=== PATIENT | male | born 1945 | race Caucasian/White ===

== ENCOUNTER 2017-12-03 12:31 | Inpatient (IN) | payer MEDICARE, OTHER ==
[2017-12-03 13:14] LABS: % BASOPHILS 0.2 % (0.0-2.0); % EOSINOPHILS 1.5 % (0.0-5.0); % LYMPHOCYTES 10.8 % (20.0-50.0); % MONOCYTES 4.3 % (2.0-10.0); % NEUTROPHILS 83.2 % (40.0-80.0); EOSINOPHILE ABSOLUTE 0.2 Th/cmm (0.1-0.4); HEMATOCRIT 37.6 % (41.0-60); HEMOGLOBIN 12.5 gm/dL (12-16); LYMPHOCYTE ABSOLUTE 1.3 Th/cmm (1.5-3.0); MEAN CELL VOLUME 86.6 fl (80-99); MEAN CORPUSCULAR HEMOGLOBIN 28.7 pg (27.0-31.0); MEAN CORPUSCULAR HGB CONC 33.1 pg (28.0-36.0); MEAN PLATELET VOLUME 7.8 fl; MONOCYTE ABSOLUTE 0.5 Th/cmm (0.3-1.0); NEUTROPHILE ABSOLUTE 10.1 Th/cmm (1.8-8.0); PLATELET COUNT 358 Th/cmm (150-400); RED BLOOD COUNT 4.34 Mil/cmm (3.80-5.80); RED CELL DISTRIBUTION WIDTH 15.6 % (11.5-20.0)
[2017-12-03 13:18] LABS: WHITE BLOOD COUNT 12.1 Th/cmm (4.8-10.8)
--- NOTE | 2017-12-03 13:18 | ED Physician Chart ---
ED Chief Complaint/HPI - Patient Information Date Seen:: 12/03/17 Time Seen:: 12:30 Chief Complaint:: Weakness History of Present Illness:: onset x 3 days of generalized weakness and dizziness; no report of trauma, LOC, ALOC, AMS, H/as, neck pain, C/P, SOB, Abd. Pain, A/N/V/D/C, fever, chills, or back pain Allergies:: Allergies Allergy/AdvReac Type Severity Reaction Status Date / Time No Known Allergies Allergy Verified 12/03/17 12:44 Vitals:: Vital Signs - 8 hr 12/03/17 12:31 Temp 97.8 F HR 81 RR 16 BP 125/71 O2 Sat % 97 Historian:: Patient, EMS Review:: Nurse's Note Reviewed, Old Chart Reviewed, EMS run form Reviewed ED Review of Systems - Review of Systems General/Constitutional: No fever, No chills, No weight loss, Weakness, No diaphoresis, No edema, No loss of appetite Skin: No skin lesions, No rash, No bruising Head: No headache, No light-headedness Eyes: No loss of vision, No pain, No diplopia ENT: No earache, No nasal drainage, No sore throat, No tinnitus Neck: No neck pain, No swelling, No thyromegaly, No stiffness, No mass noted Cardio Vascular: No chest pain, No palpitations, No PND, No orthopnea, No edema Pulmonary: No SOB, No cough, No sputum, No wheezing GI: No nausea, No vomiting, No diarrhea, No pain, No melena, No hematochezia, No constipation, No hematemesis G/U: No dysuria, No frequency, Hematuria, No nacturia Musculoskeletal: No bone or joint pain, No back pain, No muscle pain Endocrine: No polyuria, No polydipsia Psychiatric: No prior psych history, No depression, No anxiety, No suicidal ideation, No homicidal ideation, No auditory hallucination, No visual hallucination Hematopoietic: No bruising, No lymphadenopathy Allergic/Immuno: No urticaria, No angioedema Neurological: No syncope, Focal symptoms, Weakness, No paresthesia, No headache , No seizure, Dizziness, Confusion, Vertigo ED Past Medical History - Past Medical History Obtainable: Yes Past Medical History: HTN, CAD, CVA/TIA, Dyslipidemia, Dementia Family History: Diabetes Melitus, HTN Social History: Non Smoker, No Alcohol, No Drug Use, Single, Care Facility Surgical History: other (Craniotomy) Psychiatricy History: Dementia Medication: Reviewed Family Medical History - Family Member Mother History Unknown: Yes ED Physical Exam - Physical Examination General/Constitutional: Awake, Well-developed, well-nourished, Alert, No distress, GCS 15, Non-toxic appearing, Ambulatory Head: Atraumatic Eyes: Lids, conjuctiva normal, PERRL, EOMI Skin: Nl inspection, No rash, No skin lesions, No ecchymosis, Well hydrated, No lymphadenopathy ENMT: External ears, nose nl, TM canals nl, Nasal exam nl, Lips, teeth, gums nl , Oropharynx nl, Tonsils nl Neck: Nontender, Full ROM w/o pain, No JVD, No nuchal rigidity, No bruit, No mass, No stridor Respiratory: Nl effort/Exclusion, Clear to Auscultation, No Wheeze/Rhonchi/Rales Cardio Vascular: RRR, No murmur, gallop, rubs, NL S1 S2, Carotid/Femoral/Distal pulses equal bilaterally GI: No tenderness/rebounding/guarding, No organomegaly, No hernia, Normal BS's, Nondistended, No mass/bruits, No McBurney tenderness : No CVA tenderness Extremities: No tenderness or effusion, Full ROM, normal strength in all extremities, No edema, Normal digits & nails Neuro/Psych: Alert/oriented, DTR's symmetric, Normal sensory exam, Normal motor strength, Judgement/insight normal, Mood normal, Normal gait, No focal deficits Other Neuro/Psych comments:: + Aphasia; old CVA Misc: Normal back, No paraspinal tenderness ED Labs/Radiology/EKG Results - Lab Results Comments:: WBC: 12.1 - Radiology Results Comments:: CXR: CM; NAD - EKG Interpretations EKG Time:: 13:23 Rate & Rhythm: 74; NSR Comments:: Old IWMI; non-specific st-t changes ED Septic Shock - . Is Septic Shock (SBP<90, OR Lactate>4 mmol\L) present?: No - <6hrs of presentation: Vital Signs: Vital Signs - 8 hr 12/03/17 12:31 Temp 97.8 F HR 81 RR 16 BP 125/71 O2 Sat % 97 ED Reassessment (Disposition) - Reassessment Reassessment Condition:: Improved - Diagnosis Diagnosis:: Weakness; Dizziness; CVA; Leukocytosis; UTI; Hematuria; Sepsis - Aftercare/Follow up Instructions Aftercare/Follow-Up Instructions:: Counseled pt regarding lab results/diagnosis & need follow up, Counseled pt & family regarding lab results/diagnosis & need follow up - Patient Disposition Discharge/Transfer:: Acute Care w/in this hosp Accepting Physician:: Dr. Lopez Time Called:: 1340 Time Responded:: 13:40 Admitted to:: Med/Surg Spoke to:: Dr. Lopez Admitting Medical Physician:: Dr. Lopez Condition at Disposition:: Stable, Improved
[2017-12-03 13:27] LABS: INR 1.1 (0.5-1.4); PROTHROMBIN TIME (TEST) 11.5 SECONDS (9.5-11.5)
--- NOTE | 2017-12-03 13:36 | Diagnostic Imaging Report ---
CHEST X-RAY: AP view INDICATION: pain COMPARISON: None FINDINGS: There is no focal consolidation or pleural effusions The heart is normal in size. Mild tortuous aorta is noted. Degenerative changes of the spine are noted. Degenerative changes of the left shoulder also noted. IMPRESSION: No focal airspace consolidation identified. Mildly tortuous aorta.
[2017-12-03] MEDS ORDERED: cefTRIAXone 1 GM in Sodium Chloride 0.9% 50 ML IV ONE (13:50)
[2017-12-03] MEDS ORDERED: Sodium Chloride 0.9% 1,000 ML IV SCH (15:00)
[2017-12-03 15:08] LABS: URINE BILIRUBIN NEGATIVE (NEGATIVE); URINE BLOOD LARGE (NEGATIVE); URINE GLUCOSE (UA) NEGATIVE (NEGATIVE); URINE KETONE NEGATIVE (NEGATIVE); URINE LEUKOCYTE ESTERASE MODERATE (NEGATIVE); URINE MICROSCOPIC INDICATED? YES; URINE NITRATE POSITIVE (NEGATIVE); URINE PROTEIN NEGATIVE (NEGATIVE); URINE SOURCE MIDSTREAM; URINE UROBILINOGEN 0.2 E.U./dL (0.2 - 1.0)
[2017-12-03 15:25] LABS: URINE CLARITY HAZY (CLEAR); URINE COLOR YELLOW
[2017-12-03 15:29] LABS: URINE BACTERIA FEW /hpf (NONE SEEN); URINE EPITHELIAL CELLS FEW /lpf (FEW); URINE YEAST FEW /hpf (NONE SEEN)
[2017-12-03 16:26] LABS: ANION GAP 14.7 (7.0-16.0); CHLORIDE 103 mEq/L (98-107); POTASSIUM SERUM 3.7 mEq/L (3.5-5.1); SODIUM SERUM 136 mEq/L (136-145)
[2017-12-03 16:27] LABS: BUN - UREA NITROGEN 16 mg/dL (7-25); CALCIUM SERUM 10.1 mg/dL (8.6-10.3); CREATININE - SERUM 0.7 mg/dL (0.7-1.3); GFR AFRICAN-AMERICAN > 60.0 ml/min (>90); GFR NON AFRICAN-AMERICAN > 60.0 ml/min; GLUCOSE 102 mg/dL (70-105)
[2017-12-03 16:35] LABS: ALB/GLOB RATIO 0.7 (1.0-1.8); BILIRUBIN,TOTAL 0.7 mg/dL (0.3-1.0); TOTAL PROTEIN,SERUM 7.1 gm/dL (6.0-8.3)
[2017-12-03 16:36] LABS: ALKALINE PHOSPHATASE 98 U/L (34-104); CREATININE KINASE 62 U/L (30-223); SGOT 24 U/L (13-39); SGPT/ALT 21 U/L (7-52)
[2017-12-03 17:26] VITALS: BP 134/82
[2017-12-04] MEDS ORDERED: Hydrocodone/APAP 5mg/325mg Tab GT PRN (08:37)
--- NOTE | 2017-12-04 08:57 | History and Physical ---
History of Present Illness - HPI Chief Complaint: Hematuria HPI: Patient just was admitted to SNF after hospitalization due to cerebral surgery ( Dural AVF and craniotomy and embolization) He developed fever and leukocytosis. He was transferred to SNF to continue of care. Yesterday Nurse informed me that patient was having Hematuria and was transferred to ER. Vital Signs: Last Vital Signs Temp 98.3 F 12/04/17 04:32 Pulse 69 12/04/17 04:32 Resp 17 12/04/17 04:32 BP 146/92 12/04/17 04:32 Pulse Ox 96 12/04/17 04:32 Past Medical History Cardiovascular: Report: CAD, CHF, HTN Pulmonary: Report: No Pertinent Hx [employer] SERV[employer] MANAGER: Report: Other (S/P CVA, Dural AVF, Craniotomy and embolization.) GI: Report: Other (PEG in place) Psych: Report: No Pertinent Hx Musculoskeletal: Report: Weakness, Other Rheumatologic: Report: No pertinent Hx Infectious Disease: Report: No Pertinent Hx Renal/: Report: No Pertinent Hx Dermatology: Report: No Pertinent Hx - Past Surgical History Past Surgical History: Other (S/P CRANIOTOMY) Family Medical History - Family Member Mother History Unknown: Yes Social History Smoke: No Alcohol: None Drugs: None Lives: Jail Domestic Violence: Negative - Medications Home Medications: Home Medication Medication Instructions Recorded Type Acetaminophen [Tylenol] 160 mg GT Q6H PRN 12/03/17 History Ascorbic Acid [Vitamin C] 500 mg GT DAILY 12/03/17 History Carbidopa/Levodopa [Sinemet 25-100 1 each GT BID 12/03/17 History mg Tablet] Clopidogrel [Plavix] 75 mg GT DAILY 12/03/17 History Docusate Sodium [Colace] 100 mg GT BID 12/03/17 History Hydrocodone/Acetaminophen [Lortab 1 tab GT Q6H PRN 12/03/17 History 5/325 325 mg-5 mg*] Pantoprazole [Protonix] 40 mg GT QAM 12/03/17 History Simvastatin [Zocor*] 20 mg PO HS 12/03/17 History Tamsulosin HCl [Flomax] 0.4 mg GT HS 12/03/17 History Zinc Sulfate 220 mg GT DAILY 12/03/17 History - Allergies Allergies/Adverse Reactions: Allergies Allergy/AdvReac Type Severity Reaction Status Date / Time No Known Allergies Allergy Verified 12/03/17 12:44 Review of Systems - Review of Systems Constitutional: Report: Fever Eyes: Report: No Significant ENT: Report: No Significant Respiratory: Report: No Significant Cardiovascular: Report: No Significant Gastrointestinal: Report: No Significant Genitourinary: Report: Hematuria Musculoskeletal: Report: No Significant Skin: Report: No Significant Neurological: Report: No Significant, Other (Right hemiplegia) Physical Exam - Physical Exam HEENT: Report: Ears Nose Throat within normal limits, Other (Patient has surgical graps in head) Neck: Report: Within normal limits Cardiovascular Systems: Report: Regular, Rate and Rhythm Respiratory: Report: Breath Sounds are within normal limits Abdomen: Report: Non-tender to palpation, PEG site is clean Back: Report: Inspection of back is within normal limits. Extremities: Report: Non-tender to palpation., Other (Right hemiplegia) Skin: Report: Color of skin is within normal limits, Warm, Dry Neuro/Psych: Report: Disoriented to name time or place - Assessment Assessment: Patient is awake, alert, confused in no acute distress. Dx: Sepsis, hematuria, S /P craniotomy, HTN, Dementia. - Plan Plan: Patient in IV NS, Rocephin, continue with SNF meds, Tube feeding, consult with ID requested. Head CT will be requested. Will continue to monitor.
[2017-12-04] MEDS ORDERED: Pantoprazole 40 mg EC Tab PO SCH (09:00)
[2017-12-04 09:22] LABS: % BASOPHILS 0.4 % (0.0-2.0); % EOSINOPHILS 1.8 % (0.0-5.0); % LYMPHOCYTES 13.8 % (20.0-50.0); % MONOCYTES 5.4 % (2.0-10.0); % NEUTROPHILS 78.6 % (40.0-80.0); EOSINOPHILE ABSOLUTE 0.1 Th/cmm (0.1-0.4); HEMATOCRIT 34.4 % (41.0-60); HEMOGLOBIN 11.7 gm/dL (12-16); LYMPHOCYTE ABSOLUTE 1.1 Th/cmm (1.5-3.0); MEAN CORPUSCULAR HEMOGLOBIN 29.6 pg (27.0-31.0); MEAN PLATELET VOLUME 7.8 fl; MONOCYTE ABSOLUTE 0.4 Th/cmm (0.3-1.0); NEUTROPHILE ABSOLUTE 6.7 Th/cmm (1.8-8.0); PLATELET COUNT 334 Th/cmm (150-400); RED BLOOD COUNT 3.96 Mil/cmm (3.80-5.80); WHITE BLOOD COUNT 8.3 Th/cmm (4.8-10.8)
[2017-12-04 09:39] LABS: ALBUMIN 3.2 gm/dL (4.2-5.5); ALKALINE PHOSPHATASE 82 U/L (34-104); ANION GAP 10.5 (7.0-16.0); BILIRUBIN,TOTAL 0.8 mg/dL (0.3-1.0); BUN - UREA NITROGEN 16 mg/dL (7-25); CALCIUM SERUM 9.5 mg/dL (8.6-10.3); CARBON DIOXIDE 25.7 mEq/L (21.0-31.0); CHLORIDE 106 mEq/L (98-107); CREATININE - SERUM 0.8 mg/dL (0.7-1.3); GFR AFRICAN-AMERICAN > 60.0 ml/min (>90); GFR NON AFRICAN-AMERICAN > 60.0 ml/min; GLUCOSE 129 mg/dL (70-105); POTASSIUM SERUM 4.2 mEq/L (3.5-5.1); SGOT 18 U/L (13-39); SGPT/ALT 22 U/L (7-52); SODIUM SERUM 138 mEq/L (136-145); TOTAL PROTEIN,SERUM 6.3 gm/dL (6.0-8.3)
[2017-12-04] MEDS ORDERED: cefTRIAXone 1 GM in Sodium Chloride 0.9% 50 ML IV SCH (10:00)
--- NOTE | 2017-12-04 18:24 | Consultation ---
Consult Note - Consult Note Service Date: 12/04/17 Referring Physician: Todd Lopez Consult Note: cancel
--- NOTE | 2017-12-05 10:02 | Discharge Summary ---
General Discharge Summary - Discharge Summary Date of Admission: 12/03/17 Admitting Diagnosis: Sepsis, UTI, Hematuria, S/P Dural AVF and craneotomy Discharge Date: 12/04/17 Discharge Diagnosis: Sepsis, UTI, Hematuria, HTN, Dementia, S?P Dural AVF and S/ P craneotomy. Laboratory Findings: Laboratory Results - last 24 hr 12/04/17 09:15 Sodium 138 Potassium 4.2 Chloride 106 Carbon Dioxide 25.7 Anion Gap 10.5 BUN 16 Creatinine 0.8 Est GFR ( Amer) > 60.0 Est GFR (Non-Af Amer) > 60.0 BUN/Creatinine Ratio 20.0 Glucose 129 H Calcium 9.5 Total Bilirubin 0.8 AST 18 ALT 22 Alkaline Phosphatase 82 Total Protein 6.3 Albumin 3.2 L Globulin 3.1 Albumin/Globulin Ratio 1.0 Hospital Course: Patient was started in IV NS, IV AB, continue with SNF meds. Per Insurance request patient was transferred to other hospital. Disposition: TRANSFER TO ACUTE HOSP Home Medications: Home Medication Medication Instructions Recorded Type Acetaminophen [Tylenol] 160 mg GT Q6H PRN 12/03/17 History Ascorbic Acid [Vitamin C] 500 mg GT DAILY 12/03/17 History Carbidopa/Levodopa [Sinemet 25-100 1 each GT BID 12/03/17 History mg Tablet] Clopidogrel [Plavix] 75 mg GT DAILY 12/03/17 History Docusate Sodium [Colace] 100 mg GT BID 12/03/17 History Hydrocodone/Acetaminophen [Lortab 1 tab GT Q6H PRN 12/03/17 History 5/325 325 mg-5 mg*] Pantoprazole [Protonix] 40 mg GT QAM 12/03/17 History Simvastatin [Zocor*] 20 mg PO HS 12/03/17 History Tamsulosin HCl [Flomax] 0.4 mg GT HS 12/03/17 History Zinc Sulfate 220 mg GT DAILY 12/03/17 History Activity: Bed Rest Discharge Diet: 2 Gram Sodium Consults and Follow-Up: Todd Lopez [Primary Care Provider] - Consulting Speciality: Neurology, Infectious Disease Instructions: Sepsis, Adult
== END 2017-12-04 17:40 | disposition short-term general hospital (02) | DRG 872 ==
LOC: ER 12:31 → MSI 14:20
PROVIDERS: ADMIT General Practice; ATTEND General Practice
DX: A41.9 Sepsis, unspecified organism (principal); N39.0 Urinary tract infection, site not specified; I69.351 Hemiplegia and hemiparesis following cerebral infarction affecting right dominant side; I25.10 Atherosclerotic heart disease of native coronary artery without angina pectoris; E78.5 Hyperlipidemia, unspecified; I11.0 Hypertensive heart disease with heart failure; I50.9 Heart failure, unspecified; F03.90 Unspecified dementia, unspecified severity, without behavioral disturbance, psychotic disturbance, mood disturbance, and anxiety; Z83.3 Family history of diabetes mellitus; Z82.49 Family history of ischemic heart disease and other diseases of the circulatory system; Z71.89 Other specified counseling; Z79.899 Other long term (current) drug therapy; Z93.1 Gastrostomy status; Z98.890 Other specified postprocedural states
CPT/HCPCS: 36415-UA; 71045-TC; 80053-TC; 81001-TC; 82550-TC; 83605; 84484-TC; 85025-TC; 85610-TC; 85730-TC; 87086-90; 93005; J0696; J7030; Z7610